=== PATIENT | male | born 1990 | race Caucasian/White ===

== ENCOUNTER 2021-01-21 05:41 | Outpatient (CLI) | payer BC ==
[~2021-01-21] VITALS: Ht 172.7 cm; Wt 90.9 kg
[~2021-01-21 05:41] MED LIST: NAPR-1071 PO
== END 2021-01-22 14:51 | disposition home or self-care (01) ==
LOC: PREOP 05:41
PROVIDERS: ATTEND Otolaryngology Otolaryngology/Facial Plastic Surgery
DX: Z01.818 Encounter for other preprocedural examination (principal)

== ENCOUNTER 2021-01-28 08:09 | Day surgery (SDC) | payer BC ==
[2021-01-28] VITALS (10 sets, daily range): BP systolic 98–125; BP diastolic 56–92
[~2021-01-28] VITALS: Ht 172 cm; Wt 90.9 kg
[2021-01-28] MEDS ORDERED: LACTATED RINGERS 1,000 ML IV PRN (08:45)
--- NOTE | 2021-01-28 09:26 | Progress Note-Pre Operative ---
Pre-Operative Progress Note H&P Reviewed The H&P was reviewed, patient examined and no changes noted. Date Seen by Provider: Jan 28, 2021 Time Seen by Provider: 09:15 Date H&P Reviewed: Jan 28, 2021 Time H&P Reviewed: 09:15 Pre-Operative Diagnosis: Left Neck Mass NORY HUGHES MD Jan 28, 2021 09:26
[2021-01-28] MEDS ORDERED: LIDOCAINE/EPI 1%-1:200,000 (XYLOCAINE) 30 ML VIAL ONE (09:40)
[2021-01-28] MEDS ORDERED: proPOfol 200 MG/20 ML (DIPRIVAN) VIAL IV ONE ×3 (09:48→10:38)
[2021-01-28] MEDS ORDERED: ONDANSETRON 4 MG/2 ML (SDV) Z0FRAN ONE (09:48)
[2021-01-28] MEDS ORDERED: SEVOFLURANE (ULTANE) 15 ML INHAL SOLN ONE ×3 (09:48→10:38)
[2021-01-28] MEDS ORDERED: fentaNYL INJ 100 MCG/2 ML AMP ONE (09:48)
[2021-01-28] MEDS ORDERED: LIDOCAINE PF 2% 5 ML (XYLOCAINE) VIAL ONE (09:48)
[2021-01-28] MEDS ORDERED: MIDAZOLAM 2 MG/2 ML (VERSED) VIAL ONE (09:48)
[2021-01-28] MEDS ORDERED: MUPIROCIN 2% OINT 22 GM (BACTROBAN) TUBE ONE (10:59)
--- NOTE | 2021-01-28 11:11 | Anesthesia-General Post-Op ---
General Patient Condition Mental Status/LOC: Same as Preop Cardiovascular: Satisfactory Nausea/Vomiting: Absent Respiratory: Satisfactory Pain: Controlled Complications: Absent Post Op Complications Complications None Follow Up Care/Instructions Patient Instructions None needed. Anesthesia/Patient Condition Patient Condition Patient is doing well, no complaints, stable vital signs, no apparent adverse anesthesia problems. No complications reported per nursing. NUNU FITCH CRNA Jan 28, 2021 11:11
--- NOTE | 2021-01-28 11:14 | Progress Note-Post Operative ---
Post-Operative Progess Note Surgeon (s)/Undergraduate Internship (s) Surgeon NORY HUGHES MD Undergraduate Internship n/a Pre-Operative Diagnosis Left Neck Mass Post-Operative Diagnosis same Post-Op Procedure Note Date of Procedure: Jan 28, 2021 Name of Procedure Performed: Excisioon of Left Neck MaSS with Intermediate Repair Description & Findings Description and Findings: n/a Anesthesia Type lma Estimated Blood Loss minimal Packing none. Specimen(s) collected/removed left neck mass to pathology NORY HUGHES MD Jan 28, 2021 11:14
[2021-01-28] MEDS ORDERED: MEPERIDINE (DEMEROL) INJ 50 MG/ML IVP ONE (11:15)
[2021-01-28] MEDS ORDERED: ACETAMINOPHEN 325 MG TABLET PO PRN (11:15)
[2021-01-28] MEDS ORDERED: morphine INJ 10 MG/ML 1ML (SYR OR VIAL) IVP ONE (11:15)
[2021-01-28] MEDS ORDERED: HYDROcodone/APAP 5 MG/325 MG (LORTAB) TAB PO PRN (11:15)
[2021-01-28] MEDS ORDERED: ONDANSETRON 4 MG/2 ML (SDV) Z0FRAN IVP PRN (11:15)
== END 2021-01-28 12:55 ==
LOC: SDC 08:09
PROVIDERS: ATTEND Otolaryngology Otolaryngology/Facial Plastic Surgery
DX: L72.0 Epidermal cyst (principal); K21.9 Gastro-esophageal reflux disease without esophagitis; Z87.891 Personal history of nicotine dependence
CPT/HCPCS: 87081